=== PATIENT | female | born 1955 | race Two or more races ===

== ENCOUNTER → 2017-05-07 | Outpatient (CLI) | payer OTHER | LOC: FIMAGING 07:41 | PROVIDERS: ATTEND Family Medicine | DX: Z12.31 Encounter for screening mammogram for malignant neoplasm of breast (principal) | CPT/HCPCS: G0202 ==

== ENCOUNTER 2018-04-25 10:40 | Observation (INO) | payer OTHER ==
[2018-04-25] MEDS ORDERED: IBUPROFEN 600 MG TAB PO ONE (10:48)
--- NOTE | 2018-04-25 11:09 | EDPHY ---
General Time Seen by Provider: 04/25/18 10:54 Narrative: CHIEF COMPLAINT: Fall, elbow pain HISTORY OF PRESENT ILLNESS: Patient presents with complaints of fall and right elbow pain. She was walking approximately 30 min prior to arrival when she slipped in the mud, landing on her right elbow and knee. She has no complaints of the knee but has severe pain in the right elbow. Unable to move it. Tolerable at rest with severe when she moves it. There is no tenderness of the right hand or wrist unless she moves her fingers, at which time chest pain in the elbow. She has no head injury or loss of conscious. No chest, back or abdominal pain. No numbness or tingling. No weakness. Abrasions to the right elbow. Tetanus up-to-date less than 4 years ago. No other associated complaints or modifying factors. DOMINANT EXTREMITY: Right-handed ESTABLISHED ORTHOPEDIST: None REVIEW OF SYSTEMS: Ten systems reviewed and are negative unless otherwise noted in the HPI PAST MEDICAL HISTORY: Uncomplicated PAST SURGICAL HISTORY: No surgical history SOCIAL HISTORY: Nonsmoker. Lives here independently. Originally from [facility]. FAMILY HISTORY: Noncontributory EXAMINATION General Appearance: Alert, no distress HEENT: Head normocephalic and atraumatic. Pupils equal round reactive. Neck: Supple nontender. No crepitus, step-off or deformity. Cardiovascular: Pulses normal throughout. Brisk cap refill Neurological: A&O, sensory symmetric, unable to test strength in the right elbow, wrist or fingers due to pain. Skin: Warm and dry, no rash. Superficial abrasion to the right posterior elbow. Extremities: Deformity and tenderness of the right elbow. Range of motion not tested due to deformity and obvious abnormality on x-ray. There is no tenderness of the right shoulder, wrist or fingers. Range of motion lower extremities unremarkable. Superficial abrasion as above. Psychiatric: Mood and affect normal DIFFERENTIAL DIAGNOSES: Including but not limited to fracture, dislocation, fracture dislocation, sprain , strain MDM: 11:25 a.m. Mechanical fall with right elbow injury, with plain film revealing suspected fracture dislocation. I am awaiting the official radiology interpretation I will consult Orthopedics for management. She is NPO as of 9:00 a.m. Of liquids and solids. She appears to be neurovascular intact at this time. 11:40 a.m. Case discussed with Dr. Chaudhary. He will come evaluate the patient in the emergency department. He agrees that we should not attempt to manipulate the elbow at this time. He would like the patient have a CT scan of the extremity and a splint placed. I have examined the patient again and informed her of this. I have ordered CT scan, IV fluid, pain medication and baseline laboratory studies. 12:[address] Chaudhary is in the emergency department to evaluate the patient 1:[address] Chaudhary has evaluated the patient. He will proceed with surgical intervention by ORIF. He has agreed to admit the patient for observation status , but she has requested that we not out of fear of cost. I discussed this with the charge nurse, and she is okay with the patient remaining in the emergency department until surgery at this time. She will be kept strict NPO we will treat her pain and provide IV fluid resuscitation. 2:10 p.m. Patient re-evaluated. Pain is tolerable. She is now in a posterior slab splint and sling. She is in no acute distress and awaiting surgical intervention. SUPERVISION: Patient was independently examined, but I discussed the case with my secondary supervising physician Dr. Juárez - History Smoking Status: Never smoked - Objective Vital Signs: Initial Vital Signs Temperature (C) 98.6 F 04/25/18 10:43 Heart Rate 88 04/25/18 10:43 Respiratory Rate 18 04/25/18 10:43 Blood Pressure 175/113 H 04/25/18 10:43 O2 Sat (%) 94 04/25/18 10:43 O2 Delivery Mode Room Air Allergies/Adverse Reactions: No Known Allergies Allergy (Unverified 04/25/18 15:29) Home Medications: Medication Instructions Recorded HYDROmorphone HCL [Dilaudid 4 mg 4 mg PO Q4HRS PRN tab 04/25/18 (*)] Ibuprofen [Motrin (*)] 200 mg PO DAILY PRN 04/25/18 Laboratory Results: Laboratory Results 04/25/18 12:15 04/25/18 12:15 Medications Given: Docusate Sodium (Colace) 100 mg PO BID ABE Stop: 10/23/18 08:59 Last Admin: 04/26/18 09:38 Dose: 100 mg Hydromorphone HCl (Dilaudid) 4 mg PO Q4HRS PRN PRN Reason: Pain, Severe Able to Take PO Stop: 05/05/18 22:44 Last Admin: 04/26/18 15:29 Dose: 4 mg Ketorolac Tromethamine (Toradol) 15 mg IVP Q6HRS ABE Stop: 04/26/18 18:01 Last Admin: 04/26/18 11:56 Dose: 15 mg Discontinued Medications Bupivacaine HCl (Sensorcaine 0.25% Sdv) Confirm Administered Dose 30 ml .ROUTE .STK-MED ONE Stop: 04/25/18 19:47 Last Admin: 04/25/18 19:46 Dose: 30 ml Fentanyl (Sublimaze) 50 mcg IVP EDNOW ONE Stop: 04/25/18 11:27 Last Admin: 04/25/18 11:40 Dose: 50 mcg Hydromorphone HCl (Dilaudid) 0.5 mg IVP EDNOW ONE Stop: 04/25/18 14:32 Last Admin: 04/25/18 14:39 Dose: 0.5 mg Hydromorphone HCl (Dilaudid) 0.5 - 1 mg IVP ONCE ONE Stop: 04/25/18 16:01 Last Admin: 04/25/18 15:49 Dose: 1 mg Hydromorphone HCl (Dilaudid) 1 mg IVP ONCE ONE Stop: 04/25/18 18:31 Last Admin: 04/25/18 18:26 Dose: 1 mg Cefazolin Sodium/Dextrose (Ancef 2 Gm) 100 mls @ 200 mls/hr IV ONCALL ONE PRN Reason: Protocol Stop: 04/25/18 13:06 Last Admin: 04/25/18 19:26 Dose: 100 mls Lactated Ringer's (Lr) 1,000 mls @ 100 mls/hr IV CONT ABE Stop: 04/26/18 12:59 Last Admin: 04/25/18 15:41 Dose: 1,000 mls Ibuprofen (Motrin) 600 mg PO EDNOW ONE Stop: 04/25/18 10:49 Last Admin: 04/25/18 10:50 Dose: 600 mg Morphine Sulfate (Morphine) 4 mg IVP EDNOW ONE Stop: 04/25/18 12:01 Last Admin: 04/25/18 12:22 Dose: 4 mg Morphine Sulfate (Morphine) 4 mg IVP EDNOW ONE Stop: 04/25/18 13:39 Last Admin: 04/25/18 13:40 Dose: 4 mg Ondansetron HCl (Zofran) 4 mg IVP EDNOW ONE Stop: 04/25/18 11:27 Last Admin: 04/25/18 11:40 Dose: 4 mg Departure - Departure Disposition: To OP Cath/Surgery Clinical Impression: Displaced fracture of proximal end of ulna Fall Qualifiers: Encounter type: initial encounter Qualified Code(s): W19.XXXA - Unspecified fall, initial encounter
[2018-04-25] MEDS ORDERED: fentaNYL 100 MCG/2 ML INJ IVP ONE (11:26)
[2018-04-25] MEDS ORDERED: ONDANSETRON 4 MG/2 ML VIAL IVP ONE (11:26)
[2018-04-25] MEDS ORDERED: ONDANSETRON 4 MG/2 ML VIAL ONE ×2 (11:30→19:22)
[2018-04-25] MEDS ORDERED: fentaNYL 100 MCG/2 ML INJ ONE (11:30)
[2018-04-25] MEDS ORDERED: ceFAZolin 2 GM/DEXTROSE 100 ML IV ONE (12:37)
[2018-04-25 12:53] LABS: INR 0.87 (0.83-1.16); PROTIME(PATIENT) 12.1 SEC (12.0-15.0)
[2018-04-25] MEDS ORDERED: LR 1,000 ML IV SCH (13:00)
--- NOTE | 2018-04-25 13:28 | GCON ---
[f rep st] CONSULTATION ORTHOPEDIC CONSULTATION CHIEF COMPLAINT: Right elbow fracture/dislocation. HISTORY OF PRESENT ILLNESS: The patient is a 62-year-old female from [place] who slipped and fell today in the mud and landed on a hyperextended elbow and sustained a fracture/dislocation of the olec ranon. She was admitted to the emergency department. X-rays and both CT scans were obtained, which showed a fracture/dislocation of the elbow. I saw her in the emergency room. PAST MEDICAL HISTORY: None. PAST SURGICAL HISTORY: None. MEDICATIONS: None. ALLERGIES: No known drug allergies. SOCIAL HISTORY: She lives here in town, is from [facility]. Does not smoke. Reports occasional alco hol use. REVIEW OF SYSTEMS: Other than elbow pain, no shortness of breath. No loss of consciousness. Otherw ise, review of systems unremarkable. PHYSICAL EXAMINATION: VITAL SIGNS: Here in the emergency department, blood pressure is 175/113, hea rt rate 88, respiratory rate 18. She is satting 94% on room air. Temperature is 37. GENERAL: Aler t and oriented x3. HEENT: Normocephalic, atraumatic. Extraocular muscles are intact. NECK: Suppl e. There is no lymphadenopathy. No JVD. CHEST: Clear to auscultation. CARDIOVASCULAR: Regular r ate and rhythm. ABDOMEN: Soft, nontender, nondistended. Right elbow shows deformity, swelling at t he elbow. There is superficial abrasion over the radial head. One smaller superficial abrasion near the olecranon. No obvious open areas. Forearm compartment is soft. She does have a little diminis hed sensation around the elbow, but sensation is intact in the fingers to the radial, ulnar and media n nerve distributions. 2+ radial pulse. She moves her fingers well. X-rays are reviewed. They show fracture and dislocation of displaced olecranon fragment. ASSESSMENT: Fracture/dislocation, right elbow. PLAN: I recommend operative fixation. She last ate at 9:00, so will plan for this at some point aft er 5:00 tonight. She would like to be discharged home after the surgery, which I think will be able to do that in a splint. Risks and benefits of the procedure, including infection and blood clots wer e discussed. She understands the possibility of hardware removal. Preoperative paperwork was comple rhea. Plan on surgery [facility]. /[id number]/MODL
[2018-04-25] MEDS ORDERED: HYDROmorphONE/DILAUDID 1 MG/ML INJ IVP ONE ×2 (14:31→15:36)
[2018-04-25] MEDS ORDERED: HYDROmorphONE/DILAUDID 2 MG/ML INJ ONE ×3 (15:42→19:21)
[2018-04-25] MEDS ORDERED: HYDROmorphONE/DILAUDID 2 MG/ML INJ IVP ONE ×2 (16:00→18:30)
--- NOTE | 2018-04-25 19:01 | PDANEPAE ---
ANE Past Medical History - Cardiovascular History Hx Hypertension: Yes Hx Arrhythmias: No Hx Chest Pain: No Hx Coronary Artery / Peripheral Vascular Disease: No Hx CHF / Valvular Disease: No Hx Palpitations: No - Pulmonary History Hx Oxygen in Use at Home: No Hx Sleep Apnea: Yes Sleep Apnea Screening Result - Last Documented: Positive - Endocrine History Hx Diabetes: No - Renal History Hx Renal Disorders: No - Liver History Hx Hepatic Disorders: No - Neurological & Psychiatric Hx Hx Neurological and Psychiatric Disorders: No - Cancer History Hx Cancer: No - Congenital Disorder History Hx Congenital Disorders: No - GI History Hx Gastrointestinal Disorders: No - Surgical History Prior Surgeries: NONE ANE Review of Systems Review of Systems: - Exercise capacity METS (RN): 6 METS ANE Patient History - Allergies Allergies/Adverse Reactions: No Known Allergies Allergy (Unverified 04/25/18 15:29) - Home Medications Home Medications: Ibuprofen [Motrin (*)] 200 mg PO DAILY PRN 04/25/18 [Last Taken Unknown] - NPO status NPO Status: no food or drink >8 hours NPO Since - Liquids (Date): 04/25/18 NPO Since - Liquids (Time): 09:00 NPO Since - Solids (Date): 04/25/18 NPO Since - Solids (Time): 09:00 - Anes Hx Anes Hx: no prior problems - Smoking Hx Smoking Status: Never smoked - Family Anes Hx Family Hx Anesthesia Complications: NONE ANE Labs/Vital Signs - Labs Result Diagrams: 04/25/18 12:15 04/25/18 12:15 - Vital Signs Blood Pressure: 133/92 Heart Rate: 77 Respiratory Rate: 18 O2 Sat (%): 97 Height: 16.51 m Weight: 81.647 kg ANE Physical Exam - Airway Neck exam: FROM Mallampati Score: Class 2 Mouth exam: normal dental/mouth exam - Pulmonary Pulmonary: no respiratory distress, no rales or rhonchi, clear to auscultation - Cardiovascular Cardiovascular: regular rate and rhythym, no murmur, rub, or gallop - ASA Status ASA Status: II ANE Anesthesia Plan Anesthesia Plan: GA w LMA
[2018-04-25] MEDS ORDERED: PROPOFOL 200 MG/20 ML VIAL ONE (19:21)
[2018-04-25] MEDS ORDERED: DEXAMETHASONE 4 MG/ML VIAL ONE ×2 (19:22)
[2018-04-25] MEDS ORDERED: BUPIVACAINE 0.25% 30 ML SDV ONE (19:46)
[2018-04-25] MEDS ORDERED: ENALAPRILAT DIHYDRATE 1.25 MG/ML VIAL ONE (20:02)
[2018-04-25] MEDS ORDERED: NALOXONE HCL 0.4 MG/ML INJ IVP PRN (20:06)
[2018-04-25] MEDS ORDERED: ONDANSETRON 4 MG/2 ML VIAL IVP PRN (20:17)
[2018-04-25] MEDS ORDERED: ACETAMINOPHEN 500 MG TAB PO PRN (20:17)
[2018-04-25] MEDS ORDERED: HYDROmorphONE/DILAUDID 1 MG/ML INJ IVP PRN (20:17)
[2018-04-25] MEDS ORDERED: LR 500 ML IV PRN (20:17)
[2018-04-25] MEDS ORDERED: PROMETHAZINE HCL 25 MG/ML INJ IVP PRN (20:17)
[2018-04-25] MEDS ORDERED: oxyCODONE IR 5 MG TAB PO PRN (20:17)
[2018-04-25] MEDS ORDERED: MEPERIDINE 25 MG/0.5 ML AMP IVP PRN (20:17)
[2018-04-25] MEDS ORDERED: HYDROmorphONE/DILAUDID 2 MG TAB PO PRN (22:17)
--- NOTE | 2018-04-25 22:19 | POSTANESTH ---
Post Anesthetic Evaluation Cardiovascular Status: Other, See Comment (A little tachycardic on arrival in PACU (107); vital signs otherwise similar to pre-op.) Respiratory Status: Normal, Stable, Similar to Pre-op Cond. Level of Consciousness/Mental Status: Can Participate in Eval, Mildly Sleepy, Arousable Pain Control: Adequate, Prn Tx Ordered Nausea/Vomiting Control: Adequate, Prn Tx Ordered Complications Possibly Related to Anesthesia: None Noted
--- NOTE | 2018-04-25 22:26 | POSTOPPROG ---
Post Op Note Date of Operation: 04/25/18 Surgeon: Toni Chaudhary Laundry Routeman: greta diaz Anesthesiologist: Verito Anesthesia: GET(General Endotracheal) Pre-op Diagnosis: RT elbow fx/dislocation Post-op Diagnosis: same Procedure: ORIF olecranon, Loose body removal, RCL repair Inf/Abcess present in the surg proc area at time of surgery?: No EBL: 50-100 Complications: none
[2018-04-25] MEDS ORDERED: TEMAZEPAM 15 MG CAP PO PRN (22:41)
[2018-04-25] MEDS: KETOROLAC 15 MG/1 ML SDV IVP SCH (23:30)
--- NOTE | 2018-04-26 05:54 | GOP ---
[f rep st] OPERATIVE REPORT DATE OF OPERATION: 02/23/2018 SURGEON: Toni Chaudhary MD SLUNK SKIN CURER: Chencho Shahid SUPERVISOR CABINETMAKER, [facility] ANESTHESIA: General. ANESTHESIOLOGIST: Dr. Sellers. PREOPERATIVE DIAGNOSIS: Right elbow fracture/dislocation. POSTOPERATIVE DIAGNOSIS: Right elbow fracture/dislocation. PROCEDURE PERFORMED: 1. Open reduction and internal fixation of olecranon. 2. Excision of loose bodies of elbow joint. 3. Repair of radial collateral ligament. FINDINGS: ESTIMATED BLOOD LOSS: 100 mL. INDICATIONS: The patient is a 62-year-old female who slipped and fell earlier today and sustained a fracture/dislocation of her elbow. We brought her to the operating room tonight for definitive fixat ion of her fracture. DESCRIPTION OF PROCEDURE: After appropriate informed consent was obtained, the patient was taken to the operating room and placed supine on the operating room table. Time-out was performed. The patie nt was identified. The correct site was identified and matched with x-rays and CT scans that were av ailable. We prepped and draped the right upper extremity in the usual sterile fashion. We exsanguin ated the limb and inflated the tourniquet to 250 mmHg. Total tourniquet time was 120 minutes. I mad e a Gabriele-based incision over the radial head carefully. The soft tissues were carefully dissected. Bleeding was controlled with electrocautery. The radial collateral ligament was completely torn in its midsubstance on the proximal side more towards the humerus. I was able to enter the joint. The re was a fracture involving less than a third of the radial head with multiple fragments and a chondr al sleeve in the joint. These fragments were removed. I was able to reduce the radial head and repa ir back the radial collateral ligament with a #2 FiberWire. I then made an incision over the olecran on. The soft tissues were carefully dissected. There was a large hematoma beneath the skin. This wa s evacuated. The fracture was pieced back together and held with a tenaculum clamp. I placed a lag screw through two of the larger fragments to stabilize them. Plate was applied and applied to the chikis ne with a combination of compression and locking screws. There was some bone loss on the ulnar side. Fluoroscopic imaging was obtained which showed satisfactory reduction of the fracture and positioni ng of the hardware. She had good extension on the table, pronation and supination to about 70 degree s. The elbow was stable to both varus and valgus stress. The wound was irrigated. The deep layers were closed with 0-Vicryl, superficial layer was closed with 2-0 Vicryl, and skin was closed with a 3 -0 Monocryl suture. I instilled 30 mL 0.25% Marcaine plain around the incisions. Sterile dressing a nd a posterior splint were applied. The patient was awakened from anesthesia and taken to the [facility] room in satisfactory condition. There were no immediate intraoperative complications. Dirk Shahid's assistance was required throughout the entire case. TOTAL TOURNIQUET TIME: 120 minutes at 250 mmHg. IMPLANTS USED: Synthes olecranon plate. COMPLICATIONS: None. DRAINS: None. /[id number]/MODL
[2018-04-26] MEDS: KETOROLAC 15 MG/1 ML SDV IVP SCH ×2 (06:03→11:56)
--- NOTE | 2018-04-26 06:59 | SOAPPROG ---
SOAP Progress Note Assessment/Plan: Assessment: Plan: 04/26/18 06:58 POD#1 ORIF RT ulna fx DC home splint until f/u visit ice/elevate dilaudid f/u [place] 1 week Subjective: doing ok this am pain controlled Objective: splint c/d/i moving fingers radial n function intact brisk cap refill Vital Signs Temp Pulse Resp BP Pulse Ox 37.1 C 100 18 139/79 H 92 04/26/18 01:04 04/26/18 02:05 04/26/18 02:05 04/26/18 02:05 04/26/18 02:05 04/25/18 04/26/18 04/27/18 05:59 05:59 05:59 Intake Total 2310 Output Total 50 Balance 2260 PT 12.1 SEC (12.0-15.0) 04/25/18 12:15 INR 0.87 (0.83-1.16) 04/25/18 12:15 ICD10 Worksheet Patient Problems: Problems Problem Status Onset Displaced fracture of proximal end of ulna Acute Fall Acute
[2018-04-26] MEDS ORDERED: DOCUSATE SODIUM 100 MG CAP PO SCH (09:00)
[2018-04-26] MEDS: HYDROmorphONE/DILAUDID 4 MG TAB PO PRN ×2 (09:37→15:29)
--- NOTE | 2018-04-26 11:06 | ASMTLACE ---
VICENTE Length of stay for Answers: 1 day current admission Acuity / Level of Answers: No Care: Did the patient have an inpatient admission? # of Emergency department Answers: 0 visits in the last 6 months Score: 1 Date Signed: 04/26/2018 11:05 AM Electronically Signed By:HECTOR Yeung
[2018-04-26 11:41] VITALS: BP 139/66
--- NOTE | 2018-04-26 15:53 | ASMTCMCOM ---
CM Note CM Note Notes: Pt had surgery for RT olecranon fx after a fall. Pt medically stable for d/c with support. No CM d/c needs identified Date Signed: 04/26/2018 03:52 PM Electronically Signed By:HECTOR Yeung
== END 2018-04-26 17:02 | disposition home or self-care (01) ==
LOC: F3N 22:50
PROVIDERS: ADMIT Orthopaedic Surgery; ATTEND Orthopaedic Surgery
PROC: 0PSK04Z Reposition Right Ulna with Internal Fixation Device, Open Approach (ICD-10-PCS; principal; 2018-04-25 18:45)
PROC: 0RCL0ZZ Extirpation of Matter from Right Elbow Joint, Open Approach (ICD-10-PCS; principal; 2018-04-25 18:45)
PROC: 0MQ30ZZ Repair Right Elbow Bursa and Ligament, Open Approach (ICD-10-PCS; principal; 2018-04-25 18:45)
DX: S52.021A Displaced fracture of olecranon process without intraarticular extension of right ulna, initial encounter for closed fracture (principal); S52.121A Displaced fracture of head of right radius, initial encounter for closed fracture; S53.431A Radial collateral ligament sprain of right elbow, initial encounter; W01.0XXA Fall on same level from slipping, tripping and stumbling without subsequent striking against object, initial encounter; Y93.01 Activity, walking, marching and hiking; Y99.8 Other external cause status; I10 Essential (primary) hypertension; G47.33 Obstructive sleep apnea (adult) (pediatric)
CPT/HCPCS: 24343; 24685; 73080; 73200; 96374; 96375; 96376; 97165; 97535; 99285; C1769; G0378; C1713; J1100; J1170; J1885; J2270; J2405; J2704; J3010

== ENCOUNTER 2019-02-13 23:15 | Emergency (ER) | payer OTHER ==
[2019-02-13 23:20] VITALS: BP 188/111
--- NOTE | 2019-02-13 23:40 | EDPHY ---
H & P Stated Complaint: pt reports she just started bleeding from her mouth Time Seen by Provider: 02/13/19 23:22 HPI/ROS: Chief Complaint: Bleeding from mouth HPI: 63-year-old woman was at home this evening when she just noticed some blood in her mouth. Denies biting her cheek or any other trauma. Does have dental implants. Has been having some elbow pain secondary to an old injury and has been taking aspirin for the pain for the last week. No lightheadedness or fainting. The bleeding lasted about 10 min and then resolved. He has also been having some postnasal drip. No bleeding from her nose. No pain. No history of similar episodes in the past. No increasing bruising. Currently is without complaint. ROS: 10 systems were reviewed and were negative except those elements noted in the HPI. PMH: Denies Social History: No smoking, no alcohol, no recreational drug use Family History: non-contributory Physical Exam: Gen: Awake, Alert, No Distress HEENT: Nose: no rhinorrhea, no lesions, no bleeding Eyes: PERRLA, EOMI Mouth: Moist mucosa normal dentition, normal oropharynx, there are no lesions. No bleeding. Neck: Supple, no JVD Chest: nontender, lungs clear to auscultation Heart: S1, S2 normal, no murmur Abd: Soft, non-tender, no guarding Back: no CVA tenderness, no midline tenderness Ext: no edema, non-tender Skin: no rash Neuro: CN II-XII intact, Sensation grossly intact, Strength 5/5 in bilateral upper and lower extremities - Personal History Current Tetanus/Diphtheria Vaccine: Yes Current Tetanus Diphtheria and Acellular Pertussis (TDAP): Yes - Medical/Surgical History Hx Asthma: No Hx Chronic Respiratory Disease: No Hx Diabetes: No Hx Cardiac Disease: No Hx Renal Disease: No Hx Cirrhosis: No Hx Alcoholism: No Hx HIV/AIDS: No Hx Splenectomy or Spleen Trauma: No Other PMH: fx elbow - Social History Smoking Status: Never smoked Constitutional: Initial Vital Signs Temperature (C) 37.1 C 02/13/19 23:18 Heart Rate 97 02/13/19 23:18 Respiratory Rate 16 02/13/19 23:18 Blood Pressure 188/111 H 02/13/19 23:18 O2 Sat (%) 96 02/13/19 23:18 O2 Delivery Mode Room Air Allergies/Adverse Reactions: No Known Allergies Allergy (Verified 02/13/19 23:20) Home Medications: Medication Instructions Recorded NK [No Known Home Meds] 02/13/19 Medical Decision Making ED Course/Re-evaluation: 63-year-old woman who had an episode of bleeding from her mouth which lasted about 10 min. Otherwise asymptomatic. She has a normal exam. I have not identified any source of bleeding. She has been reassured. I suspected by PA nasal source but there is no active bleeding that site either. I have recommended that she take ibuprofen rather than aspirin for pain. Follow up with her dentist her primary care physician. Return for any concerns. Departure - Departure Disposition: Home, Routine, Self-Care Clinical Impression: Bleeding from mouth Condition: Good Instructions: Normal Exam (ED) Additional Instructions: I recommend you take ibuprofen rather than aspirin for musculoskeletal aches and pains. Follow up with primary care physician or dentist in 2-3 days for further evaluation. Return to the emergency department for worsening bleeding, lightheadedness, fainting, headache, or any other concerns. Referrals: Chencho Blanchard MD [Primary Care Provider] - As per Instructions
== END 2019-02-13 23:51 | disposition home or self-care (01) ==
DX: R58 Hemorrhage, not elsewhere classified (principal)